=== PATIENT | male | born 1990 | race African-American/Black ===

== ENCOUNTER → 2019-09-27 | Emergency (ER) | payer MEDICAID ==
[~2019-09-27] VITALS: Ht 195.6 cm; Wt 138.3 kg
[~2019-09-27] MED LIST: methylPREDNISolone SOD SUCC 125 MG/2 ML VL IV ONE
[2019-09-27 23:16] LABS: Basophils # (auto) 0.1 10 ^3/uL (0-0.2); Basophils % (auto) 0.6 % (0.0-2.0); Eosinophils # (auto) 1.2 10 ^3/uL (0-0.8); Eosinophils % (auto) 12.3 % (0.0-7.0); Hematocrit 45.5 % (41.0-53.0); Hemoglobin 15.5 g/dL (13.5-17.5); Lymphocytes # (auto) 1.8 10 ^3/uL (0.4-5.4); Lymphocytes % (auto) 18.7 % (10.0-50.0); Mean Corpuscular Hemoglobin 32.3 pg (28.0-32.0); Mean Corpuscular Hgb Conc. 33.9 g/dL (32.0-36.0); Monocytes # (auto) 0.6 10 ^3/uL (0-1.3); Monocytes % (auto) 6.3 % (0.0-12.0); Neutrophils % (auto) 62.1 % (37.0-80.0); Platelet Count (auto) 295 10^3/uL (140-450); Red Blood Cells 4.79 10^6/uL (4.5-5.90); Red Cell Distribution Width 14.1 % (11.8-14.3); White Blood Cell 9.6 10^3/uL (4.4-10.8)
[2019-09-27 23:36] LABS: Alanine Aminotransferase 36 U/L (16-61); Albumin 3.9 g/dL (3.4-5.0); Anion Gap 4 (5-15); Aspartate Aminotransferase 14 U/L (15-37); BUN/Creatinine Ratio 15.7; Blood Urea Nitrogen 14 mg/dL (7-18); Calcium 8.9 mg/dL (8.5-10.1); Carbon Dioxide 27 mmol/L (21-32); Chloride 106 mmol/L (98-107); GFR African American 130 mL/min; GFR Non-African American 107 mL/min; Glucose 102 mg/dL (74-106); Potassium 3.6 mmol/L (3.5-5.1); Sodium 137 mmol/L (136-145)
[2019-09-27 23:43] LABS: Alkaline Phosphatase 87 U/L (45-117); Bilirubin, Total 0.3 mg/dL (0.2-1.0); Total Protein 7.8 g/dL (6.4-8.2)
[2019-09-28 00:59] VITALS: BP 125/87
== END | disposition home or self-care (01) ==
LOC: EDBD 22:31 → ER 22:35
DX: J45.901 Unspecified asthma with (acute) exacerbation (principal)
CPT/HCPCS: 36415; 71045; 80053; 83880; 84484; 85025; 93005; 96374

== ENCOUNTER 2019-11-10 23:00 | Inpatient (IN) | payer MEDICAID ==
[~2019-11-10] VITALS: Ht 185.4 cm; Wt 141.6 kg
[2019-11-10] MEDS ORDERED: methylPREDNISolone SOD SUCC 125 MG/2 ML VL ONE (23:07)
[2019-11-10] MEDS ORDERED: methylPREDNISolone SOD SUCC 125 MG/2 ML VL IV ONE (23:30)
[2019-11-10] MEDS ORDERED: ALBUTEROL SULF 2.5 MG/0.5ML(0.5%) NEB SOLN NEB STA (23:36)
[2019-11-10] MEDS ORDERED: IPRATROPIUM BROM 0.5 MG/2.5ML INH SOL NEB ONE (23:45)
[2019-11-11] MEDS ORDERED: IPRATROPIUM BROM 0.5 MG/2.5ML INH SOL NEB ONE
[2019-11-11 00:06] LABS: Basophils # (auto) 0.1 10 ^3/uL (0-0.2); Basophils % (auto) 0.7 % (0.0-2.0); Eosinophils # (auto) 1.3 10 ^3/uL (0-0.8); Eosinophils % (auto) 14.1 % (0.0-7.0); Hematocrit 44.2 % (41.0-53.0); Hemoglobin 14.9 g/dL (13.5-17.5); Lymphocytes # (auto) 2.4 10 ^3/uL (0.4-5.4); Lymphocytes % (auto) 25.9 % (10.0-50.0); Mean Corpuscular Hemoglobin 31.8 pg (28.0-32.0); Mean Corpuscular Hgb Conc. 33.7 g/dL (32.0-36.0); Mean Corpuscular Volume 94.5 fL (80.0-100.0); Monocytes # (auto) 0.8 10 ^3/uL (0-1.3); Monocytes % (auto) 8.4 % (0.0-12.0); Neutrophils # (auto) 4.7 10 ^3/uL (1.6-8.6); Neutrophils % (auto) 50.9 % (37.0-80.0); Platelet Count (auto) 328 10^3/uL (140-450); Red Blood Cells 4.68 10^6/uL (4.5-5.90); Red Cell Distribution Width 13.8 % (11.8-14.3); White Blood Cell 9.2 10^3/uL (4.4-10.8)
[2019-11-11] MEDS ORDERED: LEVALBUTEROL HCL 1.25 MG/3 ML NEB ONE (00:24)
[2019-11-11 00:27] LABS: Albumin 3.5 g/dL (3.4-5.0); BUN/Creatinine Ratio 9.3; Calcium 8.8 mg/dL (8.5-10.1); Potassium 3.4 mmol/L (3.5-5.1)
[2019-11-11 00:29] LABS: Bilirubin, Total 0.2 mg/dL (0.2-1.0); Total Protein 7.3 g/dL (6.4-8.2)
[2019-11-11] MEDS ORDERED: LEVALBUTEROL HCL 1.25 MG/3 ML NEB NEB SCH (00:30)
[2019-11-11] MEDS: MAGNESIUM SULFATE 1GM/100ML 100 ML IV SCH ×2 (00:50→08:01)
[2019-11-11] MEDS ORDERED: TEMAZEPAM 15 MG CAP PO PRN (02:30)
[2019-11-11] MEDS ORDERED: ACETAMINOPHEN 325 MG TAB PO PRN (02:30)
[2019-11-11] MEDS ORDERED: POTASSIUM CHL 20 Meq TABLET PO ONE (02:30)
[2019-11-11] MEDS ORDERED: ONDANSETRON HCL 4 MG/2 ML VIAL IV PRN (02:30)
[2019-11-11] MEDS: LEVALBUTEROL HCL 1.25 MG/3 ML NEB NEB SCH ×5 (02:46→20:11)
[2019-11-11] MEDS: IPRATROPIUM BROM 0.5 MG/2.5ML INH SOL NEB SCH ×5 (02:47→20:10)
[2019-11-11 02:52] VITALS: BP 121/65
[2019-11-11] MEDS ORDERED: MORPHINE SULF INJ 2 MG/ML SYRINGE 1ML IV PRN (03:00)
[2019-11-11] MEDS ORDERED: NITROGLYCERIN 0.4 MG SL TAB SL PRN (03:00)
[2019-11-11] MEDS ORDERED: IPRIH (04:50)
[2019-11-11] MEDS ORDERED: LEVAAER (04:50)
[2019-11-11] MEDS ORDERED: ALBU108A5 (04:50)
[2019-11-11 04:52] VITALS: BP 124/72
--- NOTE | 2019-11-11 04:54 | NUR ---
Tele admit from ER pt arrived via wheelchair awake, alert and oriented x4. pt on 2L NC with no distress noted or expressed. pt denies any pain. pt updated on plan of care. oriented to room, bed controls, restroom, use of call light and this nurse. pt is tele 82 showing sinus tach at 105bpm. bed locked, low and 2x rails up. pt reports having intermittent SOB typically resolved with albuterol inhaler, however, on the morning of the , symptoms were unresolved and subsequently sought emergency services, pt reports he was at [facility] for same issue approx 2 weeks ago and had been referred to Dr Daniels, but had yet to see him. this nurse will endorse that to day shift RN. bed locked, low and 2x rails up. call light in reach, this nurse to round q1hr and prn. encouraged pt to call as needed.
[2019-11-11] MEDS ORDERED: IPRATROPIUM BROM 0.5 MG/2.5ML INH SOL NEB SCH (06:00)
[2019-11-11] MEDS ORDERED: ALBUTEROL SULF 2.5 MG/0.5ML(0.5%) NEB SOLN NEB SCH (06:00)
--- NOTE | 2019-11-11 06:30 | NUR ---
called pharmacy for second bag of magnesium.
[2019-11-11 08:00] VITALS: BP 128/60
--- NOTE | 2019-11-11 08:00 | NUR ---
Patient stated he had Azithromycin and Penicillin at [facility] when he got admitted there. Patient is not comfortable receiving a different antibiotic here until he talks to the doctor. Patient requested to talk to Dr. Siddiqi (for Pulmo).
[2019-11-11] MEDS ORDERED: cefTRIAXone 1GM/50ML D5W 50 ML IV SCH (09:00)
--- NOTE | 2019-11-11 09:29 | NUR ---
Patient not comfortable receiving the Rocephin until he talks to the doctor. Patient stated he had Penicillin and Azithromycin at [facility]. Waiting for MD to come over.
--- NOTE | 2019-11-11 09:32 | NUR ---
Patient refused Pepcid PO.
--- NOTE | 2019-11-11 09:32 | NUR ---
Patient stated he came from the bathroom, started having shortness of breath. Paged the Respiratory Therapist.
--- NOTE | 2019-11-11 09:36 | NUR ---
Respiratory Therapist (RT) at bedside. Patient stated his breathing is okay now after using his inhaler, patient refused the breathing treatment as per RT. RT to come back. Informed the patient medication from home at bedside not allowed.
--- NOTE | 2019-11-11 09:40 | NUR ---
Respiratory note: Called to bedside for breathing tx. Pt laying comfortably in bed, said he felt SOB 10 minutes ago but took 2 puffs of his inhaler from home. Pt says he doesn't need a breathing tx right now and denies SOB at this time. HR 110, RR 20, SPO2 94% on 2lpm NC. No s/s of respiratory distress noted. Notified RN of medication non-admin and pt's inhaler at bedside. Pt aware to call for RT if needed. Will return for next scheduled tx.
[2019-11-11] MEDS ORDERED: FAMOTIDINE 20 MG TAB PO SCH (10:00)
[2019-11-11] MEDS ORDERED: methylPREDNISolone SOD SUCC 125 MG/2 ML VL IV SCH ×2 (10:00→22:00)
--- NOTE | 2019-11-11 10:10 | NUR ---
Patient refused to endorse his inhaler from home to Pharmacy. Explained to patient that the Respiratory Therapist (RT) did not administer his scheduled breathing treatment earlier because he already used the inhaler from home. Patient stated he could "have " if didn't use his inhaler. RT to come back for the next scheduled breathing treatment. Will wait for the MD to come over.
[2019-11-11 12:00] VITALS: BP 131/71
--- NOTE | 2019-11-11 12:30 | NUR ---
Patient eating lunch. No acute distress noted. Informed patient that Scarlett Bravo is his assigned hospitalist today. Waiting for MD to come over.
[2019-11-11] MEDS ORDERED: ALBU0.084 NEB (12:45)
[2019-11-11] MEDS ORDERED: ALBUAER3 IN (12:58)
--- NOTE | 2019-11-11 14:26 | NUR ---
Patient called that he wants to talk to RT Scott. Paged Respiratory Therapist.
[2019-11-11] MEDS ORDERED: levoFLOXacin 500MG 100 ML IV SCH (14:30)
--- NOTE | 2019-11-11 14:55 | NUR ---
O2 SAT = 90% to 92% on room air when patient is steady, sitting in bed. When patient walks from bathroom back to bed, patient is having shortness of breath without O2 via nasal cannula with O2 Sat less than 90%.
--- NOTE | 2019-11-11 15:23 | NUR ---
[facility] consult regarding Home Health. Per request contacted and clinical information faxed to [facility]. Information received and services to start upon discharge. Will notify covering nurse and ALEJANDRA II of the above.
--- NOTE | 2019-11-11 15:28 | NUR ---
Scarlett Bravo came over. made aware of O2 Sat at 90% to 92% on room air when patient is sitting steady in bed, when patient walks from the bathroom back to bed on room air, patient is having shortness of breath and O2 Sat drops in the 80s. Dr. Delgado said patient can have the inhaler at bedside. ordered ABGs on room air, Telephone Maintenance Mechanic Consult for home O2, Cardiology Consult with Dr. Salazar and Pulmonology Consult with Dr. Harris.
--- NOTE | 2019-11-11 16:07 | NUR ---
Per Patricia, Procurement Intern at [facility], She has authorized [facility] Auth number [id number].
--- NOTE | 2019-11-11 16:31 | NUR ---
Dr. Salazar at [facility] for Cardiology Consult. spoke with the patient. Dr. Salazar said patient can go home as per Cardiology perspective.
--- NOTE | 2019-11-11 16:37 | NUR ---
Assessment Patient is a 29-year-old male who is alert and oriented. Prior to admission patient lived home with his girlfriend and grandparents and functioned independently. Patient informed me he has a nebulizer for home use. Patient informed me he can care for her own ADLs. Per patient he will return home to her prior living arrangements post discharge and family will transport him home. Advised patient there is a Social Service order for Home oxygen. Informed Patient he has the right to participate in all discharge planning. Patient verbalized understanding and agrees to discharge plan. Informed HECTOR Ricks an ABG order is pending for patient to received oxygen. Faxed clinical information to [facility] requesting authorization for SG. Pending authorization. Addendum: 11/11/19 at 1638 by IFEOMA KELLY Amended: Links added.
[2019-11-11 16:54] VITALS: BP 135/74
--- NOTE | 2019-11-11 17:00 | NUR ---
RT Scott called back that patient did not qualify for home O2.
[2019-11-11] MEDS ORDERED: PRED20TA2 PO (17:17)
[2019-11-11] MEDS ORDERED: LEVO500T21 PO (17:17)
[2019-11-11] MEDS ORDERED: IPR002IS NEB (17:17)
--- NOTE | 2019-11-11 17:48 | NUR ---
Dr. Harris called back for Pulmonology Consult. made aware of the ABG results, patient did not qualify for home O2. Dr. Harris said he's coming in an hour to see the patient.
[2019-11-11 18:38] VITALS: BP 135/74
--- NOTE | 2019-11-11 18:48 | NUR ---
Called Scarlett Bravo Phone on voicemail. Left a message that Dr. Salazar said patient can go home as per Cardiology perspective, Dr. Harris called that he will come over to see the patient for Pulmonology Consult, patient did not qualify for home O2 as per ABG results as per RT.
--- NOTE | 2019-11-11 19:07 | NUR ---
Dr. Harris at bedside for Pulmonology Consult.
--- NOTE | 2019-11-11 19:20 | NUR ---
Dr. Harris said patient can go home as per Pulmonology perspective. MD ordered to call RT for patient's breathing treatment before discharge. Paged the Respiratory Therapist. Endorsed patient and discharge papers/packet to transitions rn care coordinator HECTOR Canas.
--- NOTE | 2019-11-11 19:30 | NUR ---
Dr. Harris at bedside
--- NOTE | 2019-11-11 19:45 | NUR ---
Per patient, he said RT came in and gave the breathing treatment already prior to DC
--- NOTE | 2019-11-11 20:23 | NUR ---
Discharge instructions given as ordered. Encourage to follow up with PMD as instructed. All questions and concerns addressed. Patient verbalized understanding. Medication reconciliation form completed and copy given to patient. IV removed with catheter intact, pressure dressing applied. Telemetry unit returned to ICU. Patient taken to vehicle via wheelchair with all personal belongings, accompanied by staff. No distress noted at time of departure.
== END 2019-11-11 20:23 | disposition home health service (06) | DRG 133 ==
LOC: EDUNIT# 23:00 → EDBD 23:00 → ER 23:02 → TELE-WESTW 23:03
PROVIDERS: ADMIT Nurse Practitioner; ATTEND Internal Medicine
DX: J96.20 Acute and chronic respiratory failure, unspecified whether with hypoxia or hypercapnia (principal); E66.01 Morbid (severe) obesity due to excess calories; J45.901 Unspecified asthma with (acute) exacerbation; J20.9 Acute bronchitis, unspecified; Z68.41 Body mass index [BMI] 40.0-44.9, adult; E87.6 Hypokalemia; F12.90 Cannabis use, unspecified, uncomplicated; F41.9 Anxiety disorder, unspecified; Z82.49 Family history of ischemic heart disease and other diseases of the circulatory system; Z83.3 Family history of diabetes mellitus
CPT/HCPCS: 36415; 36600; 71045; 80053; 82805; 85025; 87081; 94640; 96374; G0378; J1956